=== PATIENT | male | born 1955 | race American Indian/Alaskan Native ===

== ENCOUNTER → 2017-06-10 | Outpatient (CLI) | payer MEDICAID ==
[~2017-06-10] MED LIST: ASPI-496 PO; ATOR40TA78 PO; CLOP75TA PO; FENO160T PO; LOSA25TA5 PO; METF850T2 PO; METO25TA35 PO; REGADENOSON 0.4 MG/5 ML SYRINGE ONE
== END | disposition home or self-care (01) ==
LOC: CFH 08:00
PROVIDERS: ATTEND Internal Medicine Cardiovascular Disease
DX: Z02.9 Encounter for administrative examinations, unspecified (principal)
CPT/HCPCS: J2785

== ENCOUNTER → 2017-07-31 | Outpatient (CLI) | payer MEDICAID ==
[~2017-07-31] MED LIST changes: -REGADENOSON 0.4 MG/5 ML SYRINGE ONE
== END | disposition home or self-care (01) ==
LOC: CFH 14:32
PROVIDERS: ATTEND Nurse Practitioner
DX: J84.9 Interstitial pulmonary disease, unspecified (principal)
CPT/HCPCS: 71250

== ENCOUNTER 2018-03-29 09:42 | Day surgery (SDC) | payer MEDICAID ==
[~2018-03-29] VITALS: Ht 170.2 cm; Wt 94.5 kg
[2018-03-29] MEDS ORDERED: DIPHENHYDRAMINE 50 MG/ML, 1ML IVPush ONE (10:30)
[2018-03-29] MEDS ORDERED: methylPREDNISolone SOD SUCC 125 MG/2 ML IVPush ONE (10:30)
[2018-03-29] MEDS ORDERED: FINA5TAB4 PO (10:34)
[2018-03-29 10:35] VITALS: BP 104/74
[2018-03-29] MEDS ORDERED: IBUP-1223 PO (10:40)
[2018-03-29] MEDS ORDERED: HYDR5SUS PO (10:41)
[2018-03-29 11:10] LABS: BASOPHILS # (AUTO) 0.08 x10^3/uL (0-0.1); BASOPHILS % (AUTO) 1 % (0-1); EOSINOPHILS # (AUTO) 0.32 x10^3/uL (0-0.4); EOSINOPHILS % (AUTO) 4 % (1-7); LYMPHOCYTES # (AUTO) 2.46 x10^3/uL (1-3.4); LYMPHOCYTES % (AUTO) 29 % (22-44); MD NO; MEAN CORPUSCULAR HEMOGLOBIN 30.1 pg (27.5-34.5); MEAN CORPUSCULAR HGB CONC 33.6 g/dL (33.2-36.2); MEAN CORPUSCULAR VOLUME 89.6 fL (81-97); MEAN PLATELET VOLUME 9.7 fL (7.4-10.4); MONOCYTES # (AUTO) 0.54 x10^3/uL (0.2-0.8); MONOCYTES % (AUTO) 6 % (2-9); NEUTROPHILS # (AUTO) 5.04 x10^3/uL (1.8-6.8); NEUTROPHILS % (AUTO) 60 % (42-75); PLATELET COUNT 215 x10^3/uL (130-400); RED BLOOD COUNT 5.05 x10^6/uL (4.38-5.82); RED CELL DISTRIBUTION WIDTH 13.5 % (9.4-14.8)
[2018-03-29 11:18] LABS: INTERNATIONAL NORMALIZED RATIO 1.1 (0.93-1.1); PROTHROMBIN TIME 11.3 Seconds (9.6-11.5)
[2018-03-29 11:19] LABS: ANION GAP 9 mmol/L (5-15); CALCIUM 9.1 mg/dL (8.5-10.1); CHLORIDE 106 mmol/L (98-107); CREATININE 1.04 mg/dL (0.7-1.3)
[2018-03-29] MEDS ORDERED: MIDAZOLAM 1 MG/ML, 5ML ONE (11:54)
[2018-03-29] MEDS ORDERED: BIVALIRUDIN 250 MG ONE (11:55)
[2018-03-29] MEDS ORDERED: methylPREDNISolone SOD SUCC 125 MG/2 ML ONE (11:55)
[2018-03-29] MEDS ORDERED: DIPHENHYDRAMINE 50 MG/ML, 1ML ONE (11:55)
[2018-03-29] MEDS ORDERED: HEPARIN 1,000 UNITS/ML, 10ML ONE (11:55)
[2018-03-29] MEDS ORDERED: VERAPAMIL 2.5 MG/ML, 2ML ONE (11:55)
[2018-03-29] MEDS ORDERED: FENTANYL PF 100 MCG/2ML ONE (11:55)
[2018-03-29] MEDS ORDERED: LIDOCAINE 2%, 10ML ONE (12:00)
[2018-03-29] MEDS ORDERED: PHENYLEPHRINE 10 MG/ML ONE (12:55)
== END 2018-03-29 15:34 | disposition home or self-care (01) ==
LOC: CACL 09:42
PROVIDERS: ATTEND Internal Medicine Cardiovascular Disease
DX: I25.119 Atherosclerotic heart disease of native coronary artery with unspecified angina pectoris (principal); J44.9 Chronic obstructive pulmonary disease, unspecified; F17.200 Nicotine dependence, unspecified, uncomplicated; G47.33 Obstructive sleep apnea (adult) (pediatric); E11.65 Type 2 diabetes mellitus with hyperglycemia; E78.4 Other hyperlipidemia; Z01.810 Encounter for preprocedural cardiovascular examination; Z79.82 Long term (current) use of aspirin; Z95.1 Presence of aortocoronary bypass graft; Z88.5 Allergy status to narcotic agent; Z88.8 Allergy status to other drugs, medicaments and biological substances
CPT/HCPCS: 36415; 71046; 80048; 85025; 85610; 85730; 93459; 99156; C1760; C1769; C1894; J1200; J2250; J2370; J2930; J3010; J3490; Q9967; J0583; J1644

== ENCOUNTER → 2018-03-31 | Outpatient (CLI) | payer MEDICAID ==
[~2018-03-31] MED LIST changes: +FINA5TAB4 PO; +HYDR5SUS PO; +IBUP-1223 PO
== END ==
LOC: CFH 11:47
PROVIDERS: ATTEND Internal Medicine
DX: J44.9 Chronic obstructive pulmonary disease, unspecified (principal); I25.10 Atherosclerotic heart disease of native coronary artery without angina pectoris
CPT/HCPCS: 71250

== ENCOUNTER 2018-12-28 09:28 | Outpatient (CLI) | payer MEDICAID ==
[~2018-12-28 09:28] MED LIST changes: +LOSA25TA25 PO; -LOSA25TA5 PO; +METF850T10 PO; -METF850T2 PO
== END 2018-12-28 23:59 | disposition home or self-care (01) ==
LOC: CVU 09:28
PROVIDERS: ATTEND Internal Medicine Cardiovascular Disease
DX: I08.1 Rheumatic disorders of both mitral and tricuspid valves (principal); I65.23 Occlusion and stenosis of bilateral carotid arteries; I27.20 Pulmonary hypertension, unspecified; E11.9 Type 2 diabetes mellitus without complications; J44.1 Chronic obstructive pulmonary disease with (acute) exacerbation; I25.10 Atherosclerotic heart disease of native coronary artery without angina pectoris
CPT/HCPCS: 0399T; 93306; 93880

== ENCOUNTER 2019-01-01 19:01 | Emergency (ER) | payer MEDICAID ==
[~2019-01-01] VITALS: Ht 170.2 cm; Wt 98.2 kg
--- NOTE | 2019-01-01 19:46 | NUR ---
CHRISTIE TIM AT BEDSIDE EVALUATING PT. PT PRESENTS TO THE ER C/O COUGH AND CHEST PAIN WITH INSPIRATION FOR THE PAST 3 DAYS. DENIES ANY FEVER/CHILLS, SPUTUM PRODUCTION. DENIES ANY SOB. HX OF COPD, WEARS 2 LPM O2 AT HOME. IN NO RESPIRATORY DISTRESS. PT WAS OFFERED LABS HOWEVER REFUSED THEM, STATING "I DON'T NEED ALL THAT, I JUST NEED YOU TO TELL ME IF I'VE GOT PNEUMONIA OR SOMETHING. IT HURTS TOO MUCH TO BREATHE". SPOUSE AT BEDSIDE. MONITORING EQUIPMENT APPLIED. ALL VITALS STABLE. RA SAT 89%, PT PLACED ON O2 VIA NC @ 2LPM. AWAITING TESTS TO BE DONE. WILL CONTINUE TO MONITOR.
[2019-01-01 19:50] VITALS: BP 125/67
--- NOTE | 2019-01-01 20:03 | NUR ---
PT BACK FROM XRAY
--- NOTE | 2019-01-01 20:23 | NUR ---
DR. BARRAGAN AT BEDSIDE UPDATING PT ON CXR RESULTS
--- NOTE | 2019-01-01 20:50 | NUR ---
Patient/Caregiver given discharge instructions and they have confirmed that they understand the instructions. Patient ambulatory with steady gait.
== END 2019-01-01 20:52 | disposition home or self-care (01) ==
LOC: ED 20:37
DX: J44.1 Chronic obstructive pulmonary disease with (acute) exacerbation (principal); I25.2 Old myocardial infarction; I10 Essential (primary) hypertension; E78.5 Hyperlipidemia, unspecified; E11.9 Type 2 diabetes mellitus without complications; R06.00 Dyspnea, unspecified
CPT/HCPCS: 71046; 93005; 99283

== ENCOUNTER 2019-11-16 19:55 | Emergency (ER) | payer MEDICAID ==
[~2019-11-16] VITALS: Ht 170.2 cm; Wt 100.0 kg
[2019-11-16 20:06] VITALS: BP 115/77
--- NOTE | 2019-11-16 20:10 | NUR ---
PT REFUSING TO GET UNDRESSED AND INTO GOWN. ALL ROOM MONITORING PLACED. PT STATES SOB MUCH IMPROVED WITH OXYGEN, HASN'T BEEN WEARING WHEN DOING ERRANDS AND OUT OF HOUSE. KLEENEX AND WARM BLANKET PROVIDED, CALL LIGHT WITHIN REACH.
--- NOTE | 2019-11-16 20:40 | NUR ---
PT YELLING FROM ROOM, RIPPING OFF MONITOR LEADS, STATING "I'M GETTING OUT OF HERE". PT INFORMED THAT ERP ON WAY TO SEE HIM, PT INSISTENT SAYING HE WANTS TO LEAVE AND IS UNHAPPY THAT MD DIDN'T SEE HIM ON ARRIVAL. ERP IN TO EXAMINE PT, PT REFUSING ERP EXAM AND STATES AGAIN THAT HE DOESN'T WANT TO BE EXAMINED AND IS GOING TO LEAVE. ERP OFFERED AGAIN TX TO PT AND PT STILL REFUSING. IV D/C'D, PT LEFT ED-AMBULATING WITH STEADY GAIT OUT OF DEPT.
== END 2019-11-16 20:59 | disposition home or self-care (01) ==
LOC: ED 20:53
DX: R07.9 Chest pain, unspecified (principal)
CPT/HCPCS: 99283

== ENCOUNTER 2019-11-25 09:17 | Emergency (ER) | payer MEDICAID ==
[~2019-11-25] VITALS: Ht 170.2 cm; Wt 110.0 kg
[2019-11-25] MEDS ORDERED: SODIUM CHLORIDE FLUSH 10ML SYR IVF ONE (10:00)
--- NOTE | 2019-11-25 10:07 | NUR ---
THIS IS A 64 YO M W C/O OF CP SINCE 729. RESPIRATIONS ARE EVEN AND UNLABORED. PATIENT IS IN NO ACUTE DISTRESS. CALL LIGHT IN REACH. DENIES FURTHER NEEDS AT THIS TIME.
[2019-11-25 10:25] LABS: BASOPHILS # (AUTO) 0.04 x10^3/uL (0-0.1); BASOPHILS % (AUTO) 1 % (0-1); EOSINOPHILS # (AUTO) 0.32 x10^3/uL (0-0.4); EOSINOPHILS % (AUTO) 4 % (1-7); LYMPHOCYTES # (AUTO) 2.25 x10^3/uL (1-3.4); LYMPHOCYTES % (AUTO) 29 % (22-44); MD NO; MEAN CORPUSCULAR HGB CONC 32.6 g/dL (33.2-36.2); MEAN CORPUSCULAR VOLUME 92.2 fL (81-97); MEAN PLATELET VOLUME 9.9 fL (7.4-10.4); MONOCYTES # (AUTO) 0.61 x10^3/uL (0.2-0.8); MONOCYTES % (AUTO) 8 % (2-9); NEUTROPHILS # (AUTO) 4.59 x10^3/uL (1.8-6.8); NEUTROPHILS % (AUTO) 59 % (42-75); PLATELET COUNT 201 x10^3/uL (130-400); RED BLOOD COUNT 5.26 x10^6/uL (4.38-5.82); RED CELL DISTRIBUTION WIDTH 13.8 % (9.4-14.8)
[2019-11-25 10:35] LABS: ALANINE AMINOTRANSFERASE 43 U/L (12-78); ALBUMIN 3.6 g/dL (3.4-5.0); ANION GAP 6 mmol/L (5-15); CALCIUM 8.3 mg/dL (8.5-10.1); CHLORIDE 107 mmol/L (98-107); CREATININE 1.11 mg/dL (0.7-1.3)
[2019-11-25 10:40] LABS: ALKALINE PHOSPHATASE 51 U/L (45-117); BILIRUBIN,TOTAL 0.5 mg/dL (0.2-1.0); TOTAL PROTEIN 8.3 g/dL (6.4-8.2); TROPONIN I < 0.015 ng/mL (0.000-0.045)
[2019-11-25 11:25] VITALS: BP 122/68
--- NOTE | 2019-11-25 11:26 | NUR ---
PATIENT RESTING ON GURNEY WATCHING TV. CALL LIGHT IN REACH.
--- NOTE | 2019-11-25 11:42 | NUR ---
Patient given discharge instructions and they have confirmed that they understand the instructions. Patient ambulatory with steady gait.
== END 2019-11-25 11:45 | disposition home or self-care (01) ==
LOC: ED 11:00
DX: R07.89 Other chest pain (principal); R05 Cough; J44.9 Chronic obstructive pulmonary disease, unspecified; E11.9 Type 2 diabetes mellitus without complications; E78.5 Hyperlipidemia, unspecified; I25.2 Old myocardial infarction; I10 Essential (primary) hypertension; F17.210 Nicotine dependence, cigarettes, uncomplicated
CPT/HCPCS: 36415; 71045; 80053; 83735; 83880; 84484; 85025; 93005; 99284

== ENCOUNTER 2019-12-07 11:34 | Day surgery (SDC) | payer MEDICAID ==
[2019-12-06 12:03] LABS: BASOPHILS # (AUTO) 0.05 x10^3/uL (0-0.1); BASOPHILS % (AUTO) 1 % (0-1); EOSINOPHILS # (AUTO) 0.37 x10^3/uL (0-0.4); EOSINOPHILS % (AUTO) 5 % (1-7); LYMPHOCYTES # (AUTO) 2.52 x10^3/uL (1-3.4); LYMPHOCYTES % (AUTO) 35 % (22-44); MD NO; MEAN CORPUSCULAR HEMOGLOBIN 29.9 pg (27.5-34.5); MEAN CORPUSCULAR HGB CONC 33.2 g/dL (33.2-36.2); MEAN CORPUSCULAR VOLUME 89.9 fL (81-97); MONOCYTES # (AUTO) 0.47 x10^3/uL (0.2-0.8); MONOCYTES % (AUTO) 7 % (2-9); NEUTROPHILS # (AUTO) 3.88 x10^3/uL (1.8-6.8); NEUTROPHILS % (AUTO) 53 % (42-75); PLATELET COUNT 219 x10^3/uL (130-400); RED BLOOD COUNT 5.37 x10^6/uL (4.38-5.82); RED CELL DISTRIBUTION WIDTH 14.3 % (9.4-14.8)
[2019-12-06 12:15] LABS: ANION GAP 3 mmol/L (5-15); CALCIUM 8.8 mg/dL (8.5-10.1); CHLORIDE 104 mmol/L (98-107)
[2019-12-06 12:16] LABS: CREATININE 1.15 mg/dL (0.7-1.3)
[~2019-12-07] VITALS: Ht 170.2 cm; Wt 100.0 kg
[2019-12-07] MEDS ORDERED: DIPHENHYDRAMINE 50 MG/ML, 1ML ONE (11:58)
[2019-12-07] MEDS ORDERED: methylPREDNISolone SOD SUCC 125 MG/2 ML ONE (11:58)
[2019-12-07] MEDS ORDERED: FENTANYL PF 100 MCG/2ML ONE (12:01)
[2019-12-07] MEDS ORDERED: MIDAZOLAM 1 MG/ML, 2ML ONE (12:01)
[2019-12-07] MEDS ORDERED: LIDOCAINE 1%, 20ML ONE (12:01)
== END 2019-12-07 16:00 | disposition home or self-care (01) ==
LOC: CACL 11:34
PROVIDERS: ATTEND Internal Medicine Cardiovascular Disease
DX: R93.1 Abnormal findings on diagnostic imaging of heart and coronary circulation (principal); R06.09 Other forms of dyspnea; I27.20 Pulmonary hypertension, unspecified; I25.110 Atherosclerotic heart disease of native coronary artery with unstable angina pectoris; I10 Essential (primary) hypertension; I25.2 Old myocardial infarction; G47.33 Obstructive sleep apnea (adult) (pediatric); I65.23 Occlusion and stenosis of bilateral carotid arteries; E11.65 Type 2 diabetes mellitus with hyperglycemia; J44.9 Chronic obstructive pulmonary disease, unspecified; E78.49 Other hyperlipidemia; F17.210 Nicotine dependence, cigarettes, uncomplicated; Z79.82 Long term (current) use of aspirin; Z79.02 Long term (current) use of antithrombotics/antiplatelets; Z79.84 Long term (current) use of oral hypoglycemic drugs; Z79.899 Other long term (current) drug therapy; Z91.041 Radiographic dye allergy status; Z95.5 Presence of coronary angioplasty implant and graft; Z99.81 Dependence on supplemental oxygen; Z82.49 Family history of ischemic heart disease and other diseases of the circulatory system
CPT/HCPCS: 36415; 80048; 85025; 93461; 93567; 99156; 99157; C1760; C1894; J1200; J2250; J2930; J3010; Q9967

== ENCOUNTER 2020-01-26 22:40 | Emergency (ER) | payer MEDICAID ==
[~2020-01-26] VITALS: Ht 170.2 cm; Wt 97.0 kg
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
[2020-01-26] MEDS ORDERED: ALBUTEROL/IPRATROPIUM 2.5MG/0.5MG, 3 ML ONE (23:14)
[2020-01-26 23:17] LABS: BASOPHILS # (AUTO) 0.08 x10^3/uL (0-0.1); BASOPHILS % (AUTO) 1 % (0-1); EOSINOPHILS # (AUTO) 0.19 x10^3/uL (0-0.4); EOSINOPHILS % (AUTO) 2 % (1-7); LYMPHOCYTES # (AUTO) 2.07 x10^3/uL (1-3.4); LYMPHOCYTES % (AUTO) 21 % (22-44); MD NO; MEAN CORPUSCULAR HEMOGLOBIN 29.7 pg (27.5-34.5); MEAN CORPUSCULAR HGB CONC 33.1 g/dL (33.2-36.2); MEAN CORPUSCULAR VOLUME 89.7 fL (81-97); MEAN PLATELET VOLUME 9.7 fL (7.4-10.4); MONOCYTES % (AUTO) 7 % (2-9); NEUTROPHILS # (AUTO) 6.72 x10^3/uL (1.8-6.8); NEUTROPHILS % (AUTO) 69 % (42-75); PLATELET COUNT 184 x10^3/uL (130-400); RED BLOOD COUNT 5.03 x10^6/uL (4.38-5.82); RED CELL DISTRIBUTION WIDTH 14.5 % (9.4-14.8)
[2020-01-26 23:29] LABS: ALBUMIN 3.4 g/dL (3.4-5.0); ANION GAP 7 mmol/L (5-15); CALCIUM 8.3 mg/dL (8.5-10.1); CHLORIDE 101 mmol/L (98-107); CREATININE 1.14 mg/dL (0.7-1.3)
[2020-01-26] MEDS ORDERED: ALBUTEROL SULFATE 2.5 MG/3 ML NPPB ONE (23:30)
[2020-01-26 23:33] LABS: TROPONIN I 0.033 ng/mL (0.000-0.045)
[2020-01-27 00:06] VITALS: BP 124/70
== END 2020-01-27 00:10 | disposition home or self-care (01) ==
LOC: ED 23:55
DX: J44.1 Chronic obstructive pulmonary disease with (acute) exacerbation (principal); R07.89 Other chest pain
CPT/HCPCS: 36415; 71045; 80048; 82040; 83735; 84484; 85025; 93005; 94640; 99285

== ENCOUNTER 2020-02-23 08:41 | Day surgery (SDC) | payer MEDICAID ==
[~2020-02-23] VITALS: Ht 170.2 cm; Wt 100.0 kg
[2020-02-23] MEDS ORDERED: DIPHENHYDRAMINE 50 MG/ML, 1ML IVPush ONE (09:00)
[2020-02-23 09:16] VITALS: BP 136/80
[2020-02-23] MEDS ORDERED: DIPHENHYDRAMINE 50 MG/ML, 1ML ONE (09:19)
[2020-02-23] MEDS ORDERED: FLUT1BLS3 IH (09:27)
[2020-02-23] MEDS ORDERED: FENTANYL PF 100 MCG/2ML ONE (10:18)
[2020-02-23] MEDS ORDERED: LIDOCAINE 1%, 20ML ONE (10:18)
[2020-02-23] MEDS ORDERED: MIDAZOLAM 1 MG/ML, 5ML ONE (10:18)
[2020-02-23] MEDS ORDERED: BUME1TAB21 PO (12:20)
[2020-02-23] MEDS ORDERED: SPIR25TA PO (12:20)
== END 2020-02-23 13:54 | disposition home or self-care (01) ==
LOC: CACL 08:41
PROVIDERS: ATTEND Internal Medicine Cardiovascular Disease
DX: I27.23 Pulmonary hypertension due to lung diseases and hypoxia (principal); I25.10 Atherosclerotic heart disease of native coronary artery without angina pectoris; I10 Essential (primary) hypertension; E78.5 Hyperlipidemia, unspecified; J44.9 Chronic obstructive pulmonary disease, unspecified; G47.33 Obstructive sleep apnea (adult) (pediatric); E11.9 Type 2 diabetes mellitus without complications; E66.9 Obesity, unspecified; F17.210 Nicotine dependence, cigarettes, uncomplicated; Z95.1 Presence of aortocoronary bypass graft; Z91.041 Radiographic dye allergy status; Z79.84 Long term (current) use of oral hypoglycemic drugs; Z79.82 Long term (current) use of aspirin; Z79.899 Other long term (current) drug therapy; Z68.33 Body mass index [BMI] 33.0-33.9, adult
CPT/HCPCS: 93451; 99156; C1894; J1200; J2250; J3010

== ENCOUNTER → 2020-12-12 | Outpatient (CLI) | payer MEDICAID ==
[~2020-12-12] MED LIST changes: +BUME1TAB21 PO; +FLUT1BLS3 IH; +SPIR25TA PO
== END | disposition home or self-care (01) ==
LOC: CFH 06:55
PROVIDERS: ATTEND Internal Medicine Cardiovascular Disease
DX: I08.8 Other rheumatic multiple valve diseases (principal); I11.9 Hypertensive heart disease without heart failure; I25.10 Atherosclerotic heart disease of native coronary artery without angina pectoris
CPT/HCPCS: 93306

== ENCOUNTER → 2021-08-27 | Outpatient (CLI) | payer MEDICAID | END | disposition home or self-care (01) | LOC: RAD 11:20 | PROVIDERS: ATTEND Internal Medicine | DX: R06.02 Shortness of breath (principal) ==